=== PATIENT | female | born 1990 | race African-American/Black ===

== ENCOUNTER 2016-12-08 22:00 | Inpatient (IN) | payer OTHER ==
[~2016-12-08] VITALS: Ht 157.5 cm; Wt 74.8 kg
[2016-12-09 01:55] VITALS: BP 112/75; PULSE 93; RESP 18; O2SAT 98
[2016-12-09] MEDS ORDERED: ALUMINUM/MAGNESIUM/SIMETH 30 ML CUP PO PRN (02:30)
[2016-12-09] MEDS ORDERED: LORazepam 2 MG/ML VIAL - age > 65 yrs IM PRN (02:30)
[2016-12-09] MEDS ORDERED: MAGNESIUM HYDROXIDE SUSP 30 ML CUP PO PRN (02:30)
[2016-12-09] MEDS ORDERED: LORazepam 0.5 MG TAB age > 65 yrs PO PRN (02:30)
[2016-12-09] MEDS ORDERED: ACETAMINOPHEN 325 MG TAB PO PRN (02:45)
[2016-12-09 05:50] VITALS: BP 100/66; PULSE 96; RESP 18; TEMP 98.3; O2SAT 100
[2016-12-09] MEDS ORDERED: NICOTINE 21 MG/24 HR PATCH T-DERMAL SCH (09:00)
--- NOTE | 2016-12-09 09:29 | HHI.HP ---
Provisional Diagnosis Admission Date Dec 08, 2016 at 22:00 Hyrum I. Adjustment disorder with mixed emotions Hyrum II. No diagnosis Hyrum III. Please see the emergency room evaluation from [facility] Hyrum IV. Moderate stress Hyrum V. GAF of 45 Certification of Person's Competence To Provide Express and Informed Consent I have personally examined Darrel Suggs , a person being served at [facility] on, Dec 09, 2016 09:22. Express and informed consent means consent voluntarily given in writing, by a competent person, after sufficient explanation and disclosure of the subject matter involved to enable the person to make a knowing and willful decision without any element of force, fraud, deceit, duress, or other form of constraint or coercion. This person is 18 years of age or older, is not now known to be incompetent to consent to treatment with a guardian advocate, and does not have a health care surrogate or proxy currently making medical treatment decisions. I have found this person to be one of the following: [x] Competent to provide express and informed consent, as defined above, for voluntary admission to this facility and is competent to provide express and informed consent for treatment. He/she has the consistent capacity to make well reasoned, willful, and knowing decisions concerning his or her medical or mental health treatment. The person fully and consistently understands the purpose of the admission for examination/placement and is fully capable of personally exercising all rights [place] Incompetent to provide express and informed consent to voluntary admission, and this is incompetent to provide express and informed consent to treatment. The person must be transferred to involuntary status and a petition for a guardian advocate filed with the Circuit Court. [] Refusing to provide express and informed consent to voluntary admission but is competent to provide express and informed consent for treatment. The person must be discharged or transferred to involuntary status. Form shall be completed within 24 hours of a person's arrival at the receiving facility and filed in the clinical record of each person: 1. Admitted on a voluntary basis 2. Permitted to provide express and informed consent to his/her own treatment 3. Allowed to transfer from involuntary to voluntary status 4. Prior to permitting a person to consent to his or her own treatment after having been previously found incompetent to consent to treatment. History of Present Illness Capacity: Has Capacity HPI This is a 26-year-old black, female was Lockett acted from [facility] because she was allegedly threatening to kill her father. Patient claimed that she is worried about her mother who is in a hospital and bleeding. Mother is also worried about patient. Patient denies any suicidal and/or homicidal ideation intentions or plan. She was upset with her father because he would not allow her to see her mother. Patient wants to go home. She denied any auditory or visual hallucinations. Denied any paranoia. Denied any crying spell. She has been sleeping okay. Review of Systems Except as stated in HPI: all other systems reviewed are Neg Psychiatric: COMPLAINS OF: Mood changes, Depression Past Psych History Psychological trauma history Patient denies any physical verbal or sexual abuse growing up Violence risk - others (6 mos) Denies any violence history Violence risk - self (6 mos) Denies any suicidal ideation intentions or plan Substance Abuse History Drugs/Alcohol past 12 months Patient denies any alcohol or drug use and/or abuse Past Family Social History Coded Allergies: No Known Allergies (Unverified , 12/09/16) Current Medications Medications (Trade) Dose Ordered Sig/Mk Route Start Time Stop Time Status Last Admin (Ativan) 0.5 mg Q12H PRN PO 12/09/16 02:30 (Ativan Inj) 0.5 mg Q12H PRN IM 12/09/16 02:30 (Milk Of Magnesia Liq) 30 ml DAILY PRN PO 12/09/16 02:30 (Mag-Al Plus Susp Liq) 30 ml Q6H PRN PO 12/09/16 02:30 Miscellaneous Information 1 HS T-DERMAL 12/09/16 21:00 (Habitrol 21 Mg Patch.24 Hr) 1 patch DAILY T-DERMAL 12/09/16 09:00 (Tylenol) 650 mg Q4H PRN PO 12/09/16 02:45 Family History Family history is negative for any emotional difficulty nervous breakdown or suicide attempt or alcoholism Social History Patient was born in [place]. She has 2 brothers and one sister. She is close to both of her parents. Her childhood was described as okay she denied any physical verbal sexual abuse growing up. She is not sure up to what grade she went to school. She denied any alcohol or drug use and her abuse denied any legal difficulty. Denies any previous psychiatric hospitalization or suicide attempt. She was worried about her mother who is in the hospital and wanted to see the mother and father would not allow her to patient also had complained of some abdominal pain and she was Lockett acted and brought here. Patient's Strengths (min. 2) Patient is cooperative and willing to follow-up as an outpatient if needed Physical Exam Please see the emergency room evaluation patient is complaining of some abdominal pain but other than that her vital signs are stable and she was medically cleared to be admitted to psychiatric unit Vital Signs Vital Signs Date Time Temp Pulse Resp B/P Pulse Ox O2 Delivery O2 Flow Rate FiO2 12/09/16 05:50 98.3 96 18 100/66 100 Mental Status Examination This is a 26-year-old black female who looks about the same as her stated age was alert reported 4 cooperative casually dressed her speech was slow without any evidence of loose associations or flights of ideas or pressure speech her mood was described as wanting to go and see her mother and go home her affect was restricted she denied any suicidal and/or homicidal ideation intentions or plan denied any auditory or visual hallucinations there was no evidence of any form paranoid delusion at this time she seems to be of low average intelligence with poor recent memory her insight is fair and her judgment seems to be okay on hypothetical situation her fund of knowledge is average her sleep language is normal her gait is normal her concentration is okay Assessment & Plan Problem List: (1) Adjustment disorder with mixed emotional features ICD Code: F43.29 Assessment & Plan Estimated LOS: 2 days. This is a 26-year-old black female who was admitted under Lockett act. At the present time patient denies any suicidal ideation intentions or plan denies any auditory or visual hallucinations. Denies any paranoia. Wants to go home and see her mother. She was upset with her father because he would not allow her to see the mother but she denied any feelings to harm her father. In my opinion she does not meet the Lockett act criteria I will lift the Lockett act and patient wants to be discharged we'll discharge the patient to be followed up as an outpatient if needed. This should be considered as admission and discharge summary. Request HC Surrog/Guard Advoc?: No Piyush Avelar MD Dec 09, 2016 09:29
[2016-12-09] MEDS ORDERED: REMOVE OLD NICOTINE PATCH T-DERMAL SCH (21:00)
== END 2016-12-09 14:15 | disposition home or self-care (01) | DRG 882 ==
LOC: H260 22:00
PROVIDERS: ADMIT Psychiatry & Neurology Psychiatry; ATTEND Psychiatry & Neurology Psychiatry
DX: F43.23 Adjustment disorder with mixed anxiety and depressed mood (principal)